=== PATIENT | female | born 1960 ===

== ENCOUNTER 2025-05-30 09:26 | Outpatient (AMB) | payer MEDICARE, SELFPAY ==
--- NOTE | 2025-05-30 09:43 | A.OFFVIS_ITS ---
Vital Signs 05/30/25 09:43 Height 4 ft 9 in Intake Visit Reasons: 3 month Accompanied by: [id number] Allergies No Known Allergies Allergy (Verified 05/30/25 09:48) Medication List - Last Reconciled 05/30/25 by Cecilia Negrete CNP alendronate 70 mg PO QWEEK carbidopa-levodopa 25-100 mg 1 tab PO .five times a day cholecalciferol (vitamin D3) 50 mcg PO DAILY clonazepam 0.5 mg PO QAM fluoxetine 10 mg PO DAILY gabapentin 100 mg PO TID ketorolac 0.5% drps ophthalmic (eye) levothyroxine 25 mcg PO DAILY lifitegrast 5% (Xiidra) 1 drp ophthalmic (eye) BID midodrine 5 mg PO BID pantoprazole mg PO ropinirole 4 mg PO TID zolpidem 5 mg PO BEDTIME HPI Comments Details: 65 yo LH woman with Parkinson disease diagnosed around 2019. Her initial symptom was left hand tremor.? She was here with her [id number]. She was taking carbidopa-levodopa 25- 100mg five times a day. She did not feel medication was lasting as long. She noticed she would start shaking more at the snf point between doses. Tremor was mostly in left hand and leg. No trouble eating or drinking. She was walking with cane, no falls. She was staying active with senior activities in her apartment and doing some yoga. She had some trouble getting up from a chair and turning in bed. Sleep was still not so good. [facility] Medical History (Updated 05/30/25 @ 09:46 by Cecilia Negrete CNP) Parkinson's disease GERD (gastroesophageal reflux disease) Depression with anxiety Review of Systems Const Denies chills, Denies daytime sleepiness, Reports difficulty sleeping, Denies fatigue, Denies fever(s), Denies frequent falls, Denies headache(s), Denies increased appetite, Denies poor appetite, Denies snoring, Denies weakness, Denies weight gain and Denies weight loss Eyes Denies loss of vision ENT Denies vertigo, Denies dizziness and Denies headache(s) Card Denies chest pain at rest, Denies chest pain with activity, Denies leg edema and Denies palpitations Resp Denies snoring GI Denies constipation, Denies heartburn, Denies diarrhea and Denies nausea Denies urinary frequency, Denies urinary incontinence and Denies urinary urgency Musc Reports abnormal gait (balance difficulty), Reports myalgias, Reports arthralgias, Denies numbness and Denies tingling Skin/Breast Denies dry skin and Denies rash Neuro Reports abnormal gait (balance difficulty), Denies vertigo, Denies dizziness, Denies frequent falls, Denies headache(s), Denies lack of coordination, Denies loss of vision, Denies memory loss, Denies numbness, Denies restless legs, Denies seizure-like activity, Denies tingling, Denies paresthesias, Reports tremor(s) and Denies weakness Psych Denies anxiety, Denies depression, Denies auditory hallucinations, Denies memory loss, Denies visual hallucinations and Denies suicidal ideation Endo Denies fatigue and Denies palpitations Physical Exam Const Other: General Appearance:? normal, in no acute distress. Skin:? no rashes, no significant birthmarks. Heart:? S1, S2 normal, no murmurs. Lungs:? clear anteriorly and posteriorly. Extremities:? no edema. Psych:? alert, oriented, cognitive function intact, cooperative with exam. Neuro Other: Mental Status:?Normal attention, orientation, memory and affect.? Cranial Nerves:?Pupils are equal, round and reactive to light. External occular muscles are intact. Visual nolasco are full. Face is symmetrical. Facial sensations are normal. Tongue is midline. Palate elevates symmetrically. Shoul batsheva shrugging is normal. Hearing to bedside conversation is normal. Motor Examination:?Deep tendon reflexes are 2+ Sensory Exam:?....? Coordination:?No ataxia,?no titubation.? Gait Exam: Slow and cautious with cane. Cerebellar Signs:?[id number] is ok. Extrapyramidal System:?Decreased facial expression and blinking. Mild generalized bradykinesia. Cogwheeling rigidity in upper extremities L > R. Pronator Drift:?Not present.? Involuntary Movements:?Mild to moderate bilateral hand tremor, L > R. Left leg resting tremor Speech:?Normal.? Assessment & Plan Assessment & Plan (1) Parkinson's disease: Code(s): G20.A1 - Parkinson's disease without dyskinesia, without mention of fluctuations Category: Medical Qualifiers: Dyskinesia presence: unspecified whether dyskinesia Fluctuating manifestations: unspecified whether manifestations fluctuate Qualified Code(s): G20.A1 - Parkinson's disease without dyskinesia, without mention of fluctuations Plan: Start carbidopa-levodopa 50-200mg ER 1 tablet at bedtime, use/side effects rev iewed. Continue carbidopa-levodopa 25-100mg 1 tablet five times a day. Continue ropinirole 4mg 1 tablet three times a day. Medications: New carbidopa-levodopa 50-200 mg ER 1 tab PO BEDTIME 90 tabs 0RF 90 days carbidopa-levodopa 25-100 mg (Sinemet) 1 tab PO .five times a day 450 tabs 1RF 90 days ropinirole 4 mg PO TID 270 tabs 1RF 90 days Discontinued carbidopa-levodopa 25-100 mg Discontinued Reason: Order 1 tab PO .five times a day ropinirole Discontinued Reason: Order 4 mg PO TID Coding Level of Care Code Est Pt Level 4 (52174) Diagnoses Parkinson's disease, unspecified whether dyskinesia present, unspecified whether manifestations fluctuate G20.A1 Dyskinesia presence: unspecified whether dyskinesia Fluctuating manifestations: unspecified whether manifestations fluctuate
== END 2025-05-30 10:01 | disposition home or self-care (01) ==
LOC: HO.HSM 09:28
PROVIDERS: PCP Internal Medicine; Referring Provider Internal Medicine; Visit Provider Registered Nurse
DX: G20.A1 Parkinson's disease without dyskinesia, without mention of fluctuations (principal)
CPT/HCPCS: 99214

== ENCOUNTER → 2025-05-30 09:26 | Outpatient (BNVA) | payer OTHER, SELFPAY | PROVIDERS: PCP Internal Medicine; Referring Provider Internal Medicine; Visit Provider Registered Nurse | DX: G20.A1 Parkinson's disease without dyskinesia, without mention of fluctuations (principal) | CPT/HCPCS: 99212 ==

== ENCOUNTER 2025-08-22 10:40 | Outpatient (AMB) | payer MEDICARE, SELFPAY ==
--- NOTE | 2025-08-22 10:41 | A.OFFVIS_ITS ---
Intake Visit Reasons: 3m Accompanied by: Friend Allergies No Known Allergies Allergy (Verified 08/22/25 10:43) Medication List - Last Reconciled 08/22/25 by Cecilia Negrete CNP alendronate 70 mg PO QWEEK carbidopa-levodopa 25-100 mg (Sinemet) 1 tab PO QID carbidopa-levodopa 50-200 mg ER 1 tab PO BEDTIME 90 days cholecalciferol (vitamin D3) 50 mcg PO DAILY clonazepam 0.5 mg PO QAM fluoxetine 10 mg PO DAILY gabapentin 100 mg PO TID ketorolac 0.5% drps ophthalmic (eye) levothyroxine 25 mcg PO DAILY lifitegrast 5% (Xiidra) 1 drp ophthalmic (eye) BID midodrine 5 mg PO BID pantoprazole mg PO ropinirole 4 mg PO TID 90 days zolpidem 5 mg PO BEDTIME HPI Comments Details: 65-year-old LH woman with Parkinson disease diagnosed around 2019. Her initial symptom was left hand tremor.? She was doing okay. She was taking carbidopa-levodopa 50-200mg ER at bedtime and thought this medication was the best one. It helped with tremors and she was not shaking after taking dose. She wanted to know if she could take medication in the morning instead, as she was still shaking some throughout the day. She was taking carbidopa-levodopa 25-100mg four times a day with doses about 5 hours apart, although she previously reported taking medication five times a day. She noticed she was shaking more before next dose of medication was due. Tremor was mostly to left hand and leg. No difficulty eating, drinking, or swallowing. She was walking with cane, no falls. She was staying active with senior activities in her apartment and doing some yoga. Sleep was so-so. [facility] Medical History (Updated 05/30/25 @ 09:46 by Cecilia Negrete CNP) Parkinson's disease GERD (gastroesophageal reflux disease) Depression with anxiety Review of Systems Const Denies chills, Denies daytime sleepiness, Reports difficulty sleeping, Denies fatigue, Denies fever(s), Denies frequent falls, Denies headache(s), Denies increased appetite, Denies poor appetite, Denies snoring, Denies weakness, Denies weight gain and Denies weight loss Eyes Denies loss of vision ENT Denies vertigo, Denies dizziness and Denies headache(s) Card Denies chest pain at rest, Denies chest pain with activity, Denies leg edema and Denies palpitations Resp Denies snoring GI Denies constipation, Denies heartburn, Denies diarrhea and Denies nausea Denies urinary frequency, Denies urinary incontinence and Denies urinary urgency Musc Reports abnormal gait (balance difficulty), Reports myalgias, Reports arthralgias, Denies numbness and Denies tingling Skin/Breast Denies dry skin and Denies rash Neuro Reports abnormal gait (balance difficulty), Denies vertigo, Denies dizziness, Denies frequent falls, Denies headache(s), Denies lack of coordination, Denies loss of vision, Denies memory loss, Denies numbness, Denies restless legs, Denies seizure-like activity, Denies tingling, Denies paresthesias, Reports tremor(s) and Denies weakness Psych Denies anxiety, Denies depression, Denies auditory hallucinations, Denies memory loss, Denies visual hallucinations and Denies suicidal ideation Endo Denies fatigue and Denies palpitations Physical Exam Const Other: General Appearance:? normal, in no acute distress. Skin:? no rashes, no significant birthmarks. Heart:? S1, S2 normal, no murmurs. Lungs:? clear anteriorly and posteriorly. Extremities:? no edema. Psych:? alert, oriented, cognitive function intact, cooperative with exam. Neuro Other: Mental Status:?Normal attention, orientation, memory and affect.? Cranial Nerves:?Pupils are equal, round and reactive to light. External occular muscles are intact. Visual nolasco are full. Face is symmetrical. Facial sensations are normal. Tongue is midline. Palate elevates symmetrically. Shoulder shrugging is normal. Hearing to bedside conversation is normal. Sensory Exam:?....? Coordination:?No ataxia,?no titubation.? Gait Exam: Slow and cautious with cane. Cerebellar Signs:?[id number] is ok. Extrapyramidal System:?Decreased facial expression and blinking. Mild generalized bradykinesia. Cogwheeling rigidity in upper extremities L > R. Pronator Drift:?Not present.? Involuntary Movements:?Mild to moderate bilateral hand tremor, L > R. Left leg resting tremor, some in right leg. Speech:?Normal.? Assessment & Plan Assessment & Plan (1) Parkinson's disease: Code(s): G20.A1 - Parkinson's disease without dyskinesia, without mention of fluctuations Category: Medical Qualifiers: Dyskinesia presence: unspecified whether dyskinesia Fluctuating manifestations: unspecified whether manifestations fluctuate Qualified Code(s): G20.A1 - Parkinson's disease without dyskinesia, without mention of fluctuations Plan: She reported taking carbidopa-levodopa 25-100mg 1 tablet four times a day - timing of administration was reviewed. Continue carbidopa-levodopa 25-100mg 1 tablet four times a day (7am, 11, 3pm, 7pm) May take carbidopa-levodopa 50-200mg ER 1 tablet in morning instead. Medications: Changed From carbidopa-levodopa 25-100 mg (Sinemet) 1 tab PO QID To carbidopa-levodopa 25-100 mg (Sinemet) 1 tablet at 7am, 11am, 3pm, and 7pm 1 tab PO QID 360 tabs 1RF 90 days Refilled carbidopa-levodopa 50-200 mg ER 1 tab PO BEDTIME 90 tabs 1RF 90 days Coding Level of Care Code Est Pt Level 4 (00505) Diagnoses Parkinson's disease, unspecified whether dyskinesia present, unspecified whether manifestations fluctuate G20.A1 Dyskinesia presence: unspecified whether dyskinesia Fluctuating manifestations: unspecified whether manifestations fluctuate
--- OUTSIDE RECORDS SUMMARY | 2025-08-22 12:15 | XMS_ITS | Clinical Summary ---
Author Organization [facility] Address [address] [place], [place] [id number] Phone Care Team Providers Care Assistant Analyst Name Role Phone Jose Grissom MD Primary Care Provider [phone] Social History Tobacco Use Types Packs/Day Years Used Date Smoking Tobacco: Never Assessed Comments Unknown Sex and Gender Information Value Date Recorded Sex Assigned at Not on file Legal Sex Female 11:27 AM EST Gender Identity Not on file Sexual Orientation Not on file Plan of Treatment Not on file Medical Devices Not on file Insurance NATALEE GARCIA [facility] MEDICARE REPLACEMENT [facility] ONE [employer] MEDICARE REPLACEMENT Care Teams Assistant Analyst Relationship Specialty Start Date End Date Jose Grissom MD [address] [place] [address] [address] [place] [address] [email or web address] PCP - General Family Medicine 01/22/25 Additional Source Comments The information contained in this document represents components of the legal health record. It is not the complete legal health record.[facility]
== END 2025-08-22 10:57 | disposition home or self-care (01) ==
LOC: HO.HSM 10:40
PROVIDERS: PCP Internal Medicine; Visit Provider Registered Nurse
DX: G20.A1 Parkinson's disease without dyskinesia, without mention of fluctuations (principal)
CPT/HCPCS: 99214

== ENCOUNTER → 2025-08-22 10:40 | Outpatient (BNVA) | payer OTHER, SELFPAY | PROVIDERS: PCP Internal Medicine; Visit Provider Registered Nurse | DX: G20.A1 Parkinson's disease without dyskinesia, without mention of fluctuations (principal) | CPT/HCPCS: 99212 ==